=== PATIENT | female | born 1990 | race African-American/Black ===

== ENCOUNTER 2022-04-27 15:51 | Emergency (ER) | payer OTHER, SELFPAY ==
--- NOTE | ~2022-04-27 | XR_ITS ---
EXAMINATION: XR chest 2V 04/27/2022 19:00 INDICATION: Fever and cough PROCEDURE: 2 view chest COMPARISON: No prior studies for comparison. FINDINGS: The lungs are clear. The cardiomediastinal silhouette is within normal limits. There are no pleural effusions. There is no pneumothorax suspected. IMPRESSION: 1: NO ACUTE CARDIOPULMONARY DISEASE. Reviewed, dictated and finalized at location A. [facility] FILLER
[2022-04-27 16:12] VITALS: BP 129/79; PULSE 128; RESP 16; TEMP 37.4; O2SAT 97
[2022-04-27 17:34] LABS: Influenza A QL RT-PCR Negative (Negative); Influenza B QL RT-PCR Negative (Negative); SARS-CoV-2 RNA PCR Negative
--- NOTE | 2022-04-27 18:14 | ED.URI ---
HPI - URI/Sore Throat General Chief Complaint: Upper Respiratory Infection Stated Complaint: fever Time Seen by Provider: 04/27/22 16:46 History of Present Illness HPI Narrative: 31-year-old female history of asthma presents to the emergency room for evaluation of body aches, fatigue, headaches and shortness of breath. States that she has been using her albuterol inhaler multiple times a day for the past week. Also states that she has not taken any oral fluids for almost 6 hours due to fatigue. Patient reports nonproductive cough. No sick contacts. Related Data Allergies Allergy/AdvReac Type Severity Reaction Status Date / Time Penicillins Allergy Intermediate Rash Verified 04/27/22 18:41 Review of Systems Review of Systems: CONSTITUTIONAL: Reports fever and chills EYES: Denies visual changes, redness, or discharge. ENT: Denies rhinorrhea, congestion, sore throat, or otalgia. CARDIOVASCULAR: Denies chest pain, palpitations, or edema. RESPIRATORY: Reports cough, wheezing, shortness of breath GASTROINTESTINAL: Denies abdominal pain, nausea, vomiting, or diarrhea. GENITOURINARY: Denies dysuria or hematuria. SKIN: Denies rash or itching. MUSCULOSKELETAL: Reports body aches NEUROLOGIC: Reports fatigue and weakness PSYCHIATRIC: Denies anxiety or depression. Exam Narrative: GENERAL: Ill-appearing, well-nourished, no physical limitations, and in no acute distress. HEAD: Normocephalic, atraumatic. EYES: Conjunctivae normal, PERRLA and EOMI. ENT: External nose normal, Nares clear, no rhinorrhea or epistaxis. Mucous membranes dry. Oropharynx without tonsillar hypertrophy exudate or other lesions. External ears normal, bilateral TMs normal bilaterally NECK: Supple. No adenopathy or masses. CHEST: Clear to auscultation. No respiratory distress. No wheezes rales or rhonchi. HEART: Regular rate and rhythm. No murmur heard. Normal peripheral pulses.M EXTREMITIES: Normal range of motion. No edema. No clubbing or cyanosis SKIN: Warm, dry, no rash. No noted wounds NEURO: No focal deficits. Alert and oriented x3. MAEW. CN's II-XI intact bilaterally, normal gait PSYCH: Cooperative. Normal mood and affect. Course Vital Signs Vital signs: Vital Signs Temperature 37.4 C 04/27/22 16:12 Pulse Rate 128 H 04/27/22 16:12 Respiratory Rate 16 04/27/22 16:12 Blood Pressure 129/79 04/27/22 16:12 Pulse Oximetry 97 04/27/22 16:12 Oxygen Delivery Room Air 04/27/22 16:12 Temperature 37.4 C 04/27/22 16:12 Pulse Rate 104 H 04/27/22 18:46 Respiratory Rate 18 04/27/22 18:46 Blood Pressure 129/79 04/27/22 16:12 Pulse Oximetry 97 04/27/22 16:12 Oxygen Delivery Room Air 04/27/22 16:12 MDM - URI/Sore Throat MDM Narrative Medical decision making narrative: Patient presented with symptoms suspicious for likely viral upper respiratory infection. Based on H&P doubt any sinusitis. Patient was negative for flu and COVID. No suspicion for underlying cardiopulmonary process. Chest x-ray showed no acute cardiopulmonary disease. Patient was given a breathing treatment, liter of fluid and some steroids. Patient stated she had improvement in her symptoms. Patient is nontoxic-appearing. Will encourage patient to isolate at home for the next 4 to 5 days take Tylenol and ibuprofen as needed for any discomfort. Lab Data Labs: Lab Results 04/27/22 Range/Units 16:19 Influenza A (RT-PCR) Negative (Negative) Influenza B (RT-PCR) Negative (Negative) SARS-CoV-2 RNA (RT-PCR) Negative Discharge Plan Discharge Clinical Impression: Upper respiratory infection, Asthma Patient Disposition: Home, Self-Care Condition: Stable Instructions: Antibiotic Form, Viral Syndrome (ED) Additional Instructions: Recommend taking Tylenol and ibuprofen as needed for body aches, fevers and headaches. Keep yourself hydrated. May take prednisone for the next 5 days to help with your shortness of breath. Recom
[2022-04-27] MEDS: SODIUM CHLORIDE 0.9% IV 1,000 ML 999 ML IV CONT (18:31)
[2022-04-27] MEDS: methylPREDNISolone SOD SUCC 125 MG VIAL IV PUSH (18:32)
[2022-04-27] MEDS: ALBUTEROL SULFATE NEB 2.5 MG/3 ML INH INHALATION (18:32)
[2022-04-27] MEDS: IPRATROPIUM BR 0.02% INH SOLN 0.5 MG/2.5 ML VIAL INHALATION (18:32)
[2022-04-27] MEDS: KETOROLAC 30 MG/ML VIAL (*BKC) IV PUSH (18:32)
[2022-04-27 18:33] VITALS: PULSE 100; RESP 18
[2022-04-27 18:46] VITALS: PULSE 104; RESP 18
[2022-04-27 19:25] VITALS: BP 122/81; PULSE 117; RESP 16; TEMP 37.9; O2SAT 98
== END 2022-04-27 19:56 | disposition home or self-care (01) ==
PROVIDERS: Emergency Medicine; Emergency Provider Nurse Practitioner Family; PCP Internal Medicine
DX: J06.9 Acute upper respiratory infection, unspecified (principal); J45.909 Unspecified asthma, uncomplicated; Z20.822 Contact with and (suspected) exposure to COVID-19
CPT/HCPCS: 71046; 87636; 94640; 96361; 96374; 96375; 99284; J1885; J2930; J7030

== ENCOUNTER 2025-04-05 14:15 | Emergency (ER) | payer OTHER, SELFPAY ==
--- NOTE | ~2025-04-05 | CT_ITS ---
EXAMINATION: CT abdomen pelvis w con DATE: 04/05/2025 19:19 INDICATION: Upper abdominal pain. Nausea, vomiting, constipation. TECHNIQUE: Computed tomography (CT) of the abdomen and pelvis was performed with 100 cc of intravenous contrast. Automated exposure control and iterative reconstruction technique were employed. The dose-length product was 348.32 mGy-cm. COMPARISON: None. FINDINGS: The lung bases do not show acute findings. No focal lesions of the liver and spleen. The gallbladder shows no acute findings. Common bile duct measures 7 to 8 mm. Pancreas shows no acute findings. The kidneys do not show calculi or obstruction. No evidence of small bowel obstruction is seen. Appendix is not clearly visible. No inflammatory changes in the pelvis. Bulky uterus is noted. Small quantity of free fluid is noted in the pelvic cul-de-sac along with 1.8 cm size ruptured follicle in the left ovary. IMPRESSION: 1. No acute findings in the upper abdomen. 2. Small quantity of free fluid in the pelvic cul-de-sac. 1.8 cm size collapsed ruptured follicle in the left ovary. Reviewed, dictated and finalized at location T. [facility]
[2025-04-05 14:53] VITALS: BP 128/97; PULSE 68; RESP 16; TEMP 36.7; O2SAT 100
[2025-04-05 17:15] VITALS: BP 122/82; PULSE 78; RESP 15; O2SAT 99
--- NOTE | 2025-04-05 17:17 | ED_ITS ---
HPI - Nausea/Vomiting/Diarrhea General Chief complaint: Nausea/Vomiting/Diarrhea <EDUARDO Ibrahim Last Filed: 04/05/25 17:25> Stated complaint: Vomiting blood, constipated. NEIL <Isabella Ponce PA-C - Last Filed: 04/05/25 17:25> Time Seen by Provider: 04/05/25 17:17 <EDUARDO Ibrahim Last Filed: 04/05/25 17:25> Focused HPI: Patient is a 34 y/o female who presents to the ED with c/o nausea, vomiting, constipation. Patient reports she has been dealing with constipation intermittently for the past 3 months. Has very rarely been taking laxatives which does provide relief. States she has not had any stool passage in the past 2 weeks. Has not tried anything for constipation lately. Reports intermittent nausea and vomiting the past 1 month. States this began again last night. States she has not been able to keep down any food or drink since last night. Reports having some streaks of bright red blood in her emesis today. Reports pain throughout upper abdomen, NEIL last night into today, 12 lb weight loss in the past 1 month. Denies fevers. GENERAL: Well-appearing, well-nourished, and in no acute distress. HEAD: Normocephalic, atraumatic. CHEST: Clear to auscultation. ?No respiratory distress. HEART: Regular rate and rhythm.? ABD: Mild TTP in epigastric region NEURO: ?Alert and oriented x3. Patient screened in triage and initial orders placed.? ?Additional care and disposition to be based upon?diagnostic testing and treatment. <Isabella Ponce PA-C - Last Filed: 04/05/25 17:25> Source: patient <EDUARDO Ibrahim Last Filed: 04/05/25 17:25> Mode of arrival: ambulatory <EDUARDO Ibrahim Last Filed: 04/05/25 17:25> Limitations: no limitations <EDUARDO Ibrahim Last Filed: 04/05/25 17:25> History of Present Illness HPI Narrative: Agree with above HPI. <JORDAN Duckworth - Last Filed: 04/06/25 03:19> Related Data Allergies/Adverse reactions: Allergies Allergy/AdvReac Type Severity Reaction Status Date / Time Penicillins Allergy Intermediate Rash Verified 04/05/25 18:52 <Isabella Ponce PA-C - Last Filed: 04/05/25 17:25> Review of Systems 2 Review of Systems: All systems reviewed & are unremarkable except as noted in HPI and below <JORDAN Duckworth - Last Filed: 04/06/25 03:19> Exam 2 Narrative: GENERAL: Well-appearing, well-nourished, and in no acute distress. HEAD: Normocephalic, atraumatic. EYES: PERRLA and EOMI. ENT: Nares clear, no rhinorrhea or epistaxis. Mucous membranes moist. Oropharynx without tonsillar hypertrophy exudate or other lesions. Bilateral TMs pearly ureña non-bulging NECK: Supple. No adenopathy or masses. No carotid bruits or JVD CHEST: Clear to auscultation. No respiratory distress. No wheezes rales or rhonchi HEART: Regular rate and rhythm. No murmur heard. Normal peripheral pulses. ABDOMEN: Soft, mild epigastric tenderness, nondistended, normal active bowel sounds. EXTREMITIES: Normal range of motion. No edema. SKIN: Warm, dry, no rash. NEURO: No focal deficits. Alert and oriented x3. Speech clear. Follows commands. CN II-XII intact. Sensation grossly intact. Steady gait. No ataxic movements. Strength 5/5 in upper and lower extremities bilaterally. [id number] testing intact bilaterally. No pronator drift. PSYCH: Normal mood and affect <JORDAN Duckworth - Last Filed: 04/06/25 03:19> Course Vital Signs Vital signs: Vital Signs Temperature 98.1 F 04/05/25 14:53 Pulse Rate 68 04/05/25 14:53 Respiratory Rate 16 04/05/25 14:53 Blood Pressure 128/97 H 04/05/25 14:53 Pulse Oximetry 100 04/05/25 14:53 Oxygen Delivery Room Air 04/05/25 14:53 Temperature 98.9 F 04/05/25 19:35 Pulse Rate 72 04/05/25 22:11 Respiratory Rate 16 04/05/25 22:11 Blood Pressure 118/80 04/05/25 22:11 Pulse Oximetry 97 04/05/25 22:11 Oxygen Delivery Room Air 04/05/25 18:50 <Isabella Ponce PA-C - Last Filed: 04/05/25 17:25> Vital Signs Temperature 98.1 F 04/05/25 14:53 Pulse Rate 68 04/05/25 14:53 Respiratory Rate 16 04/05/25 14:53 Blood Pressure 128/97 H 04/05/25 14:53 Pulse Oximetry 100 04/05/25 14:53 Oxygen Delivery Room Air 04/05/25 14:53 Temperature 98.9 F 04/05/25 19:35 Pulse Rate 72 04/05/25 22:11 Respiratory Rate 16 04/05/25 22:11 Blood Pressure 118/80 04/05/25 22:11 Pulse Oximetry 97 04/05/25 22:11 Oxygen Delivery Room Air 04/05/25 18:50 <JORDAN Duckworth Last Filed: 04/06/25 03:19> MDM - Nausea/Vomiting/Diarrhea MDM Narrative Medical decision making narrative: MSE by KELLIE in triage <Isabella Ponce PA-C - Last Filed: 04/05/25 17:25> MSE by KELLIE in triage Patient is a 34 y/o female who presents to the ED with c/o nausea, vomiting, constipation. Patient reports she has been dealing with constipation intermittently for the past 3 months. Has very rarely been taking laxatives which does provide relief. States she has not had any stool passage in the past 2 weeks. Has not tried anything for constipation lately. Reports intermittent nausea and vomiting the past 1 month. States this began again last night. States she has not been able to keep down any food or drink since last night. Reports having some streaks of bright red blood in her emesis today. Reports pain throughout upper abdomen, NEIL last night into today, 12 lb weight loss in the past 1 month. Denies fevers and urinary symptoms. Patient given Zofran and Protonix by MSE provider. This provided mild relief. Upon my initial exam patient states she is having a migraine. She reports she has migraines often. This has been accompanied by vomiting. Neuro exam intact. She is also experiencing epigastric pain. Not tender on exam. Labs within normal limits. CT demonstrates no acute findings in the upper abdomen and a small quantity of free fluid in the pelvic cul-de-sac. 1.8 cm size collapsed ruptured follicle in the left ovary. Patient made aware of these results and further explained that this is a normal physiologic finding in reproductive age female. Patient also reports a negative test. Does not endorse lower abdominal pain her any vaginal complaints. Administered GI cocktail and migraine cocktail. Patient reported vast improvement in symptoms. Patient is nontoxic-appearing and is in no distress. Differential diagnosis and treatment plan were discussed with the patient. Patient agrees with discussion and after shared medical decision making agrees with plan of care. All questions were answered to the patient's satisfaction. Sent home with script for Zofran and Pepcid. The patient is appropriate for outpatient treatment and follow-up. Given reasons to return. <JORDAN Duckworth - Last Filed: 04/06/25 03:19> Lab Data Result diagrams: 04/05/25 18:36 04/05/25 18:36 <Isabella Ponce PA-C - Last Filed: 04/05/25 17:25> Labs: Lab Results 04/05/25 04/05/25 Range/Units 18:36 18:46 WBC 7.5 (4.5-10.0) K/mm3 RBC 4.54 (4.2-5.4) M/mm3 Hgb 13.9 (12.0-15.0) g/dL Hct 42.1 (37.0-47.0) % MCV 92.7 (80-100) fl MCH 30.6 (26-34) pg MCHC 33.0 (32-36) g/dl RDW 12.5 (11.5-14.5) % Plt Count 347 (150-375) k/mm3 MPV 9.7 (7.4-10.4) fl Immature Gran % (Auto) 0.1 (0-0.5) % Neut % (Auto) 43.9 L (45.5-73.1) % Lymph % (Auto) 42.7 (18.3-44.2) % [place] % (Auto) 8.3 (2.6-8.5) % Eos % (Auto) 4.3 (0-4.4) % Baso % (Auto) 0.7 (0.2-1.2) % Lymph # (Auto) 3.20 (0.9-3.2) K/mm3 [place] # (Auto) 0.6 (0.1-0.6) K/mm3 Eos # (Auto) 0.3 (0-0.3) K/mm3 Baso # (Auto) 0.1 (0.0-0.1) K/mm3 Abs Immat Gran (auto) 0.01 (0.00-0.031) K/mm3 Absolute Neuts (auto) 3.3 (1.3-6.7) K/mm3 Absolute Nucleated RBC 0.000 (0.0-0.012) K/mm3 Nucleated RBC % 0.0 (0.0-0.2) % PT 13.6 (11.1-14.7) Seconds INR 1.0 APTT 32.3 (22.3-36.8) Seconds Sodium 137 (137-145) mmol/L Potassium 3.8 (3.4-5.0) mmol/L Chloride 105 (98-107) mmol/L Carbon Dioxide 23 (22-30) mmol/L Anion Gap 9 (4-12) mmol/L BUN 6 L (7-17) mg/dL Creatinine 0.70 (0.7-1.0) mg/dL Estim Creat Clear Calc 90 ml/min Estimated GFR > 60 (59 - ) Glucose 95 (65-110) mg/dL Calcium 9.6 (8.4-10.2) mg/dL Total Bilirubin 1.2 (0.2-1.3) mg/dL AST 27 (14-36) U/L ALT 18 (6-35) U/L Alkaline Phosphatase 56 (38-126) U/L Total Protein 9.4 H (6.3-8.2) g/dL Albumin 5.1 (3.5-5.1) g/dL Lipase 33 (23-300) U/L Urine Color Yellow (Yellow) Urine Appearance Cloudy H (Clear) Urine pH 6.5 (5.0-9.0) Ur Specific [place] 1.012 (1.001-1.035) Urine Protein Negative (Negative) mg/dL Urine Glucose (UA) Negative (Negative) mg/dL Urine Ketones Trace H (Negative) mg/dL Ur Blood (Man) Negative (Negative) Urine Nitrate Negative (Negative) Urine Bilirubin Negative (Negative) Urine Urobilinogen 1.0 (<2.0) mg/dL Add Ur Microanalysis Reviewed Leukocyte Esterase Rfl 1+ H (Negative) JESS/UL Urine RBC 3-5 H (0-2) /hpf Urine WBC 0-5 (0-3) /hpf Ur Squamous Epith Cells Moderate (Few) /hpf Urine Bacteria 1+ H /hpf Urine Casts 0-2 POC Urine HCG, Qual Negative (Negative) <Isabella Ponce PA-C - Last Filed: 04/05/25 17:25> Lab Results 04/05/25 04/05/25 Range/Units 18:36 18:46 WBC 7.5 (4.5-10.0) K/mm3 RBC 4.54 (4.2-5.4) M/mm3 Hgb 13.9 (12.0-15.0) g/dL Hct 42.1 (37.0-47.0) % MCV 92.7 (80-100) fl MCH 30.6 (26-34) pg MCHC 33.0 (32-36) g/dl RDW 12.5 (11.5-14.5) % Plt Count 347 (150-375) k/mm3 MPV 9.7 (7.4-10.4) fl Immature Gran % (Auto) 0.1 (0-0.5) % Neut % (Auto) 43.9 L (45.5-73.1) % Lymph % (Auto) 42.7 (18.3-44.2) % [place] % (Auto) 8.3 (2.6-8.5) % Eos % (Auto) 4.3 (0-4.4) % Baso % (Auto) 0.7 (0.2-1.2) % Lymph # (Auto) 3.20 (0.9-3.2) K/mm3 [place] # (Auto) 0.6 (0.1-0.6) K/mm3 Eos # (Auto) 0.3 (0-0.3) K/mm3 Baso # (Auto) 0.1 (0.0-0.1) K/mm3 Abs Immat Gran (auto) 0.01 (0.00-0.031) K/mm3 Absolute Neuts (auto) 3.3 (1.3-6.7) K/mm3 Absolute Nucleated RBC 0.000 (0.0-0.012) K/mm3 Nucleated RBC % 0.0 (0.0-0.2) % PT 13.6 (11.1-14.7) Seconds INR 1.0 APTT 32.3 (22.3-36.8) Seconds Sodium 137 (137-145) mmol/L Potassium 3.8 (3.4-5.0) mmol/L Chloride 105 (98-107) mmol/L Carbon Dioxide 23 (22-30) mmol/L Anion Gap 9 (4-12) mmol/L BUN 6 L (7-17) mg/dL Creatinine 0.70 (0.7-1.0) mg/dL Estim Creat Clear Calc 90 ml/min Estimated GFR > 60 (59 - ) Glucose 95 (65-110) mg/dL Calcium 9.6 (8.4-10.2) mg/dL Total Bilirubin 1.2 (0.2-1.3) mg/dL AST 27 (14-36) U/L ALT 18 (6-35) U/L Alkaline Phosphatase 56 (38-126) U/L Total Protein 9.4 H (6.3-8.2) g/dL Albumin 5.1 (3.5-5.1) g/dL Lipase 33 (23-300) U/L Urine Color Yellow (Yellow) Urine Appearance Cloudy H (Clear) Urine pH 6.5 (5.0-9.0) Ur Specific [place] 1.012 (1.001-1.035) Urine Protein Negative (Negative) mg/dL Urine Glucose (UA) Negative (Negative) mg/dL Urine Ketones Trace H (Negative) mg/dL Ur Blood (Man) Negative (Negative) Urine Nitrate Negative (Negative) Urine Bilirubin Negative (Negative) Urine Urobilinogen 1.0 (<2.0) mg/dL Add Ur Microanalysis Reviewed Leukocyte Esterase Rfl 1+ H (Negative) JESS/UL Urine RBC 3-5 H (0-2) /hpf Urine WBC 0-5 (0-3) /hpf Ur Squamous Epith Cells Moderate (Few) /hpf Urine Bacteria 1+ H /hpf Urine Casts 0-2 POC Urine HCG, Qual Negative (Negative) <JORDAN Duckworth Last Filed: 04/06/25 03:19> Critical Care Time Critical Care Time Critical Care Time: No <JORDAN Duckworth Last Filed: 04/06/25 03:19> Discharge Plan Discharge Clinical Impression: Migraine, Epigastric abdominal pain <EDUARDO Ibrahim Last Filed: 04/05/25 17:25> Patient Disposition: Home <EDUARDO Ibrahim Last Filed: 04/05/25 17:25> Condition: Stable <EDUARDO Ibrahim Last Filed: 04/05/25 17:25> Instructions: Migraine Headache (ED), Abdominal Pain (ED) <EDUARDO Ibrahim Last Filed: 04/05/25 17:25> Additional Instructions: Return to the emergency department if you experience fever, chest pain, shortness of breath, abdominal pain with nausea and vomiting, weakness, numbness/tingling, or any other symptoms that are concerning to you. Begin Pepcid twice daily for reflux. Follow up with primary care doctor <EDUARDO Ibrahim Last Filed: 04/05/25 17:25> Patient Language: Moroccan <EDUARDO Ibrahim Last Filed: 04/05/25 17:25> Prescriptions: New ondansetron 4 mg tablet,disintegrating 4 mg PO Q6H PRN (Reason: nausea and vomiting) Qty: 20 0RF famotidine 10 mg tablet 10 mg PO BID Qty: 30 0RF No Action prednisone 20 mg tablet 60 mg PO DAILY 5 Days Qty: 15 0RF <EDUARDO Ibrahim Last Filed: 04/05/25 17:25> Follow-up/Referrals: Sunil,Micheline García MD [Primary Care Provider, Internal Medicine] <EDUARDO Ibrahim Last Filed: 04/05/25 17:25>
[2025-04-05 18:48] LABS: BEDSIDEPREGUCG Negative (Negative)
[2025-04-05 18:50] VITALS: BP 138/80; PULSE 68; RESP 18; O2SAT 99
[2025-04-05 18:53] LABS: Hematocrit 42.1 % (37.0-47.0); Hemoglobin 13.9 g/dL (12.0-15.0); Immature Granulocyte Percent A 0.1 % (0-0.5); Lymphocytes Absolute Auto 3.20 K/mm3 (0.9-3.2); Mean Corpuscular HGB Conc 33.0 g/dl (32-36); Mean Corpuscular Hemoglobin 30.6 pg (26-34); Mean Corpuscular Volume 92.7 fl (80-100); Nucleated Red Blood Cells Absolute Auto 0.000 K/mm3 (0.0-0.012); Nucleated Red Blood Cells Perc 0.0 % (0.0-0.2); Platelet Count Result 347 k/mm3 (150-375); Red Blood Count 4.54 M/mm3 (4.2-5.4); White Blood Count 7.5 K/mm3 (4.5-10.0)
[2025-04-05 19:03] LABS: INR 1.0; Prothrombin Time 13.6 Seconds (11.1-14.7)
[2025-04-05 19:04] LABS: Partial Thromboplastin Time 32.3 Seconds (22.3-36.8)
[2025-04-05 19:06] LABS: Alanine Aminotransferase 18 U/L (6-35); Albumin Level 5.1 g/dL (3.5-5.1); Alkaline Phosphatase 56 U/L (38-126); Anion Gap 9 mmol/L (4-12); Aspartate Amino Transferase 27 U/L (14-36); Bilirubin,Total 1.2 mg/dL (0.2-1.3); Blood Urea Nitrogen 6 mg/dL (7-17); Calcium 9.6 mg/dL (8.4-10.2); Carbon Dioxide 23 mmol/L (22-30); Chloride 105 mmol/L (98-107); Estimated CRCL calculation 90 ml/min; Estimated Glomerular Filt Rate > 60; Glucose 95 mg/dL (65-110); Lipase 33 U/L (23-300); Potassium 3.8 mmol/L (3.4-5.0); Sodium 137 mmol/L (137-145); Total Protein 9.4 g/dL (6.3-8.2)
[2025-04-05 19:18] LABS: Add Urine Microscopic? YES; Appearance Urine Cloudy (Clear); Glucose Urine UA Negative (Negative); Leukocyte Esterase Ur 1+ LEU/UL (Negative); Need Manual Microscopic Reviewed; Nitrate Urine Negative (Negative); Non Pathogenic Casts 0-2; Specific Grav Ur 1.012 (1.001-1.035)
[2025-04-05] MEDS: ONDANSETRON INJ 4 MG/2 ML VIAL IV PUSH (19:32)
[2025-04-05] MEDS: PANTOPRAZOLE SODIUM IV 40 MG VIAL IV PUSH (19:33)
[2025-04-05 19:35] VITALS: BP 127/91; PULSE 74; RESP 13; TEMP 37.2; O2SAT 100
--- NOTE | 2025-04-05 19:58 | PC.NURSE ---
Received report from KEILA Arizmendi for cont. of care. Pt AOx4, lying on stretcher on cont. cardiac and pulse oximeter monitoring. Refer to MAR for medication administration.
[2025-04-05] MEDS: MAG HYDROX/AL HYDROX/SIMETH 30 ML UDC PO (20:58)
[2025-04-05] MEDS: PROCHLORPERAZINE EDISYLATE 10 MG/2 ML VIAL IV PUSH (21:00)
[2025-04-05] MEDS: KETOROLAC 30 MG/ML VIAL (*BKC) IV PUSH (21:00)
--- NOTE | 2025-04-05 21:37 | PC.NURSE ---
pt ambulatory to bathroom with steady gait, pt denies pain or discomfort at this time.
[2025-04-05 22:11] VITALS: BP 118/80; PULSE 72; RESP 16; O2SAT 97
== END 2025-04-05 22:15 | disposition home or self-care (01) ==
PROVIDERS: Physician Assistant; PCP Internal Medicine
DX: G43.909 Migraine, unspecified, not intractable, without status migrainosus (principal); R10.13 Epigastric pain
CPT/HCPCS: 36415; 74177; 80053; 81001; 81025; 83690; 85025; 85610; 85730; 96374; 96375; 99284; A9270; J0780; J1200; J1885; J2405; J2470; Q9967